=== PATIENT | female | born 1955 | race Caucasian/White ===

== ENCOUNTER 2016-12-03 08:51 | Outpatient (CLI) | payer OTHER ==
[2014-02-22 20:54] VITALS: BP 179/78
[2016-12-03 09:16] LABS: BASOPHILS % 1.2 (0.0-1.5); EOSINOPHILS % 3.4 % (0.0-6.8); MEAN CORPUSCULAR HEMOGLOBIN 31.2 pg (28.0-34.0); MEAN CORPUSCULAR VOLUME 92.6 fl (80.0-100.0); MONOCYTES % 3.8 % (0.0-11.0); NEUTROPHILS # 3.6 # k/uL (1.4-7.7)
[2016-12-03 09:40] LABS: eGFR (African) > 60; eGFR (Non-African) > 60
== END 2016-12-03 09:05 ==
LOC: LAB 08:51
PROVIDERS: ATTEND Family Medicine
DX: R53.83 Other fatigue (principal); I10 Essential (primary) hypertension
CPT/HCPCS: 36415; 80053; 80061; 84443; 85025

== ENCOUNTER 2017-05-12 09:06 | Outpatient (CLI) | payer OTHER ==
[2014-02-22 20:54] VITALS: BP 179/78
[2017-05-12 11:41] LABS: eGFR (African) > 60; eGFR (Non-African) > 60
== END 2017-05-12 09:08 ==
LOC: LAB 09:06
PROVIDERS: ATTEND Family Medicine
DX: E78.2 Mixed hyperlipidemia (principal)
CPT/HCPCS: 36415; 80053